=== PATIENT | male | born 1960 | race Caucasian/White ===

== ENCOUNTER 2016-10-22 07:34 | Day surgery (SDC) | payer BC ==
[~2016-10-22 07:34] MED LIST: ASPIRIN EC81 MG PO; ASPIRIN325 MG; B COMPLEX1 CAP PO; BABY ASPIRIN81 MG; BAYER ASPIRIN325 M1 PO; BELSOMRA20 MG PO; BL MAXEPA CAPSU1 CAP; CATAFLAM50 MG PO; CELEBREX200 MG; CELEBREX200 MG PO; CLONAZEPAM0.5 M2 PO; CLONAZEPAM0.5 MG PO; DARVOCET-N 1001 TAB PO; DEPAKOTE ER500 M1 PO; DIHYDROERGO1 MG/1 ML IM; EQL FISH OIL 1,1 CAP; EXCEDRIN MIGRA1 EAC3 PO; FISH OIL 1,0001 CA PO; FISH OIL 1,0001 EA10 PO; FLEXERIL10 MG PO; FLOMAX0.4 MG PO; HYDROCODONE-AP473 ML PO; LITHIUM CA300 MG/TAB PO; LORTAB 5/500 TA1 TAB PO; MIRTAZAPINE15 M1 PO; MOTRIN800 MG PO; MULTIVITAMIN1 TAB; MULTIVITAMIN1 TAB PO; MULTIVITAMINS1 EAC6 PO; NIACIN TD500 MG PO; NORCO 5/325 TAB1 TAB PO; NORTRIPTYLINE H10 M1 PO; PERCOCET 5/3251 TAB PO; POTASSIUM GLUC500 GM PO; PRAVACHOL10 MG; PROBIOTIC1 EA10 PO; PULMICORT0.5 MG/21 IH; REQUIP3 MG; REQUIP3 MG PO; REQUIP5 M1 PO; SKELAXIN800 MG PO; SLO-NIACIN500 MG; SUMATRIPTA6 MG/0.54 SC; TESSALON200 MG PO; TOPAMAX25 M2 PO; VIIBRYD10 M1 PO; VITAMIN B-121000 MC3 SL; VITAMIN D31000 UNI3 PO
[2016-10-22 10:14] LABS: CSF GLUCOSE 62 mg/dl (40-75)
[2016-10-22 14:01] LABS: CSF APPEARANCE CLEAR (CLEAR); CSF COLOR COLORLESS (COLORLESS); CSF RBC CT 1 cmm (0); CSF TUBE NUMBER CSF TUBE 3; CSF WBC CT <1 cmm (0-10)
[2016-11-02] MEDS ORDERED: LIDOCAINE IM (12:51)
== END 2016-10-22 11:30 ==
LOC: RADSP 07:34 → SHSB 07:37
PROVIDERS: Psychiatry & Neurology Neurology
PROC: 009U3ZX Drainage of Spinal Canal, Percutaneous Approach, Diagnostic (ICD-10-PCS; principal; 2016-10-22)
PROC: B01BZZZ Fluoroscopy of Spinal Cord (ICD-10-PCS; 2016-10-22)
DX: R51 Headache (principal); Z79.82 Long term (current) use of aspirin; Z79.899 Other long term (current) drug therapy; Z88.8 Allergy status to other drugs, medicaments and biological substances; Z90.89 Acquired absence of other organs; Z98.890 Other specified postprocedural states

== ENCOUNTER 2016-11-02 12:56 | Emergency (ER) | payer BC ==
[~2016-11-02 12:56] MED LIST changes: +LIDOCAINE IM
== END 2016-11-02 14:44 ==
LOC: EDMED 12:56
DX: G89.29 Other chronic pain (principal); R51 Headache; F17.210 Nicotine dependence, cigarettes, uncomplicated
CPT/HCPCS: J1200; J1885; J2060; J2765; J7030